=== PATIENT | male | born 1970 ===

== ENCOUNTER 2017-03-28 11:37 | Day surgery (SDC) | payer OTHER, MEDICARE, MEDICAID ==
[2017-03-16 08:26] VITALS: BMI 20.7
[~2017-03-28 11:37] MED LIST: Iodixanol 320 MG/ML 200 ML BOTTLE IV ONE; Iodixanol 320 mg/ml 150 ml Bottle IV ONE; Lidocaine 2% Inj (20ml) ONE; Nitroglycerin 50mg in D5W 50 MG/250 ML BOTTLE IV ONE
[2017-03-28] MEDS ORDERED: Midazolam 2 MG/2 ML VIAL ONE ×2 (12:16→12:49)
[2017-03-28] MEDS ORDERED: Iodixanol 320 MG/ML 100 ML BOTTLE IV ONE (13:09)
[2017-03-28] MEDS ORDERED: Oxycodone/Acetaminophen 5/325 mg Tab PO PRN (13:35)
--- NOTE | 2017-03-28 15:34 | CP.PCM.CON ---
History of Present Illness - History of Present Illness History of Present Illness: 47 year old male with a past medical history of right mastoiditis/osteomylitis, IDDM, ESRD on Dialysis (M, W,F) presenting [place] [facility] [place] from [facility] for renal angiogram procedure. Patient tolerated procedure well. After procedure, patient was transferred to CCU where he received 225 minutes of HD. After HD patient to be transferred back to [facility]. Past Patient History - Infectious Disease Hx of Infectious Diseases: None - Tetanus Immunizations Tetanus Immunization: Unknown - Past Medical History & Family History Past Medical History?: Yes - Past Social History Smoking Status: Former Smoker - CARDIAC Hx Hypercholesterolemia: Yes Hx Hypertension: Yes - PULMONARY Hx Pneumonia: Yes - NEUROLOGICAL Hx Neurological Disorder: No - HEENT Hx HEENT Problems: Yes Hx Cataracts: Yes (with surgery) - RENAL Hx Chronic Kidney Disease: Yes - ENDOCRINE/METABOLIC Hx Endocrine Disorders: Yes - HEMATOLOGICAL/ONCOLOGICAL Hx Blood Disorders: Yes - INTEGUMENTARY Hx Dermatological Problems: No - MUSCULOSKELETAL/RHEUMATOLOGICAL Hx Musculoskeletal Disorders: Yes Hx Falls: Yes - GASTROINTESTINAL Hx Gastrointestinal Disorders: Yes Hx Nausea: Yes Hx Vomiting: Yes Other/Comment: DIABETIC GASTROPARESIS - GENITOURINARY/GYNECOLOGICAL Hx Genitourinary Disorders: Yes Other/Comment: Failed renal transplant - PSYCHIATRIC Hx Psychophysiologic Disorder: No Hx Substance Use: No - SURGICAL HISTORY Hx Appendectomy: Yes - ANESTHESIA Hx Anesthesia: Yes Hx Anesthesia Reactions: No Meds Allergies/Adverse Reactions: Allergies Allergy/AdvReac Type Severity Reaction Status Date / Time No Known Allergies Allergy Verified 03/27/17 10:39 - Medications Medications: Current Medications Acetaminophen (Tylenol 325mg Tab) 650 mg PO Q4H PRN PRN Reason: Pain, Mild (1-3) Ondansetron HCl (Zofran Inj) 4 mg IVP ONCE PRN PRN Reason: Nausea/Vomiting Oxycodone/Acetaminophen (Percocet 5/325 Mg Tab) 1 tab PO Q4H PRN PRN Reason: Pain, moderate (4-7) Stop: 03/31/17 13:36 Results - Vital Signs Recent Vital Signs: Last Vital Signs Temp Pulse 60 03/28/17 15:00 Resp 43 H 03/28/17 15:00 BP 155/61 H 03/28/17 15:00 Pulse Ox 92 L 03/28/17 15:00
[2017-03-28] MEDS ORDERED: Nicardipine 20 MG/200 ML 20 MG/200 ML BAG IV PRN (15:39)
[2017-03-28 16:00] LABS: ALB/GLOB RATIO 1.3 (1.1-1.8); BILIRUBIN,TOTAL 0.6 mg/dL (0.2-1.3); CALCIUM 8.2 mg/dL (8.4-10.5); MAGNESIUM 2.2 mg/dL (1.7-2.2); PHOSPHOROUS 8.1 mg/dL (2.5-4.5); POTASSIUM 5.4 mmol/L (3.6-5.0); TOTAL PROTEIN 6.8 g/dL (5.8-8.3)
[2017-03-28 16:27] VITALS: TEMP 97.8
--- NOTE | 2017-03-28 18:02 | VASCULAR ---
PROCEDURE: 1. Selective bilateral renal arteriograms. 2. Selective pelvic transplant renal arteriograms x 2 3. Left renal artery transplant angioplasty and stent placement x 2 HISTORY: Uncontrolled hypertension on multiple IV antihypertensive. End-stage renal disease. Failed renal transplant 3 years ago. Evaluate for renal artery stenosis and renovascular hypertension PHYSICIAN(S): Joaquin Aleman M.D. TECHNIQUE: The relative risks and indications of the procedure were explained to the patient and consent obtained. The patient was placed supine on the arteriogram table and the right groin prepped and draped in the usual sterile fashion. Conscious sedation and monitoring were provided throughout the procedure by a nurse. Via a right common femoral artery approach, a 5 [place] sheath was placed in the right groin. Through the sheath and over a guidewire, a 5 [place] flush catheter was placed in the abdominal aorta at the level of the renal arteries and a PA DSA abdominal aortogram performed. The catheter was exchanged for a 5 [place] C1 catheter placed in the right main renal artery. A selective right main renal arteriogram was performed. The C1 catheter was then placed selectively in the left main renal artery and a DSA left main renal arteriogram performed. The catheter was removed and a 0.035 glidewire placed in the left SFA. A 6 [place] 45 cm bulk in sheath was placed in the proximal left external iliac artery. Injection left external iliac artery revealed 2 renal transplant arteries. Exchange is made for a a 5 [place] angle catheter that was placed the origin of the E main left transplant renal artery. Stasis was noted. 100 mm gradient was noted. A selective left transplant renal arteriogram was performed. Exchange is made for 0.014 guidewire. The origin of the main left transplant renal artery was dilated with a 5 mm balloon. A 5 mm by 15 mm balloon expandable stent was deployed at the origin of the left main transplant renal artery. A good angiographic result was obtained with very slow antegrade flow. The 5 [place] selective catheter was placed in the accessory left transplant renal artery. Once again a 20-30 mm gradient was seen. Over a 0.014 guidewire [place] 4 mm x 12 mm balloon expandable stent was placed in the accessory left transplant renal artery. Completion angiograms were obtained. The sheath was removed hemostasis obtained. The patient tolerated the procedure well. FINDINGS: The k[place] main renal arteries are atrophic but patent. Mild atherosclerotic disease is noted on the right. The nephrograms are atrophic and poorly perfused. No radiographically significant stenosis of the ken[place] main renal arteries is seen. There are 2 transplant renal arteries coming off the left external iliac artery anteriorly. The main transplant renal artery demonstrates 100 mm gradient. Subsequently a 5 mm balloon expandable stent was placed the origin of the main left transplant renal artery. The accessory left transplant renal artery also demonstrates 20-30 mm gradient. A 4 mm balloon expandable stent was placed the origin of the left accessory transplant renal artery. There is poor antegrade flow noted in the transplant renal artery is due to the patient's end-stage renal disease IMPRESSION: 1.Hemodynamically significant stenoses at the origins of both left transplant renal arteries. 2. Successful angioplasty and balloon expandable stent placement in the origin of the left transplant renal arteries. 3. Atrophic but patent main k[place] renal arteries. 4. The visualized abdominal aorta and iliac arteries are patent.
--- NOTE | 2017-03-28 18:03 | VASCULAR ---
PROCEDURE: Ultrasound and fluoroscopically placed left upper extremity PICC line. HISTORY: End-stage renal disease. Uncontrolled hypertension on IV medications. Needs PICC line. PHYSICIAN(S): Joaquin Aleman MD. TECHNIQUE: The relative risks and indications of the procedure were explained to the patient and consent obtained. The patient was placed supine on the arteriogram table and the left arm prepped and draped in the usual sterile fashion. A tourniquet was applied to the left axilla. 1% Xylocaine was used to anesthetize the skin and soft tissues at the puncture site above the elbow. The left basilic vein was punctured under direct ultrasound guidance with a micropuncture set. A 0.018 guidewire was advanced centrally and used to measure the length to the SVC/RA junction. A 5 [place] single-lumen PICC line 50 cm long was advanced to the SVC/RA junction. The catheter was flushed and secured. The patient tolerated the procedure well. IMPRESSION: 1. Ultrasound and fluoroscopically placed left upper extremity PICC line. A 5 [place] single-lumen PICC line 50 cm long was advanced to the SVC/RA junction.
[2017-03-28 19:28] VITALS: O2SAT 96
[2017-03-28 20:23] VITALS: BP 188/81; PULSE 76; RESP 17
--- NOTE | 2017-03-29 02:29 | CON ---
HISTORY OF PRESENT ILLNESS: A 47-year-old male with past medical history of diabetes; hypertension; ESRD, on hemodialysis (Tuesday, Tuesday, Tuesday at [facility]), status post failed renal transplant (transplanted in 2003,failed in 2013), initially presented to [facility] with palpitations while receiving hemodialysis. The patient was found to have severely uncontrolled hypertension. Workup revealed renal artery stenosis involving transplanted kidney. The patient was therefore transferred to [facility] for angioplasty, angiogram. The patient underwent successful angioplasty and stent placement in main transplant renal artery as well as left transplanted renal artery, accessory artery. The patient subsequently moved to ICU for observation and hemodialysis. The patient reports that his blood pressure had been around 150s up until about past 2 weeks or so when blood pressure started to rise significantly. The patient has also been having right ear infection and was initially treated with p.o. antibiotics; however, on further assessment, was found to have right-sided mastoiditis/osteomyelitis and was placed on IV antibiotics. The patient reports that he generally gains anywhere from 3.5 to 5 kilos between dialysis sessions. The patient is otherwise anuric. Gets short of breath on walking a few blocks. Gets intermittent leg swelling as well. PAST MEDICAL HISTORY: As above. FAMILY HISTORY: Mother with hypertension. Denies any family history of kidney disease. SOCIAL HISTORY: Previous smoker. REVIEW OF SYSTEMS: HEENT: No change in vision lately. Right-sided mastoiditis as mentioned above, receiving ibuprofen p.r.n. RESPIRATORY: Dyspnea at times. CARDIOVASCULAR: As mentioned in HPI. GASTROINTESTINAL: Denies any nausea, vomiting or diarrhea. GENITOURINARY: Anuric. NEUROLOGIC: Numbness in feet. PSYCHIATRIC: Denies any depression. SKIN: Has had previous foot ulcers, none currently. PHYSICAL EXAMINATION VITAL SIGNS: This morning, blood pressure 167/73, heart rate 63, respirations 16, and O2 sat 98% on room air. GENERAL: No distress. Communicating coherently in full sentences. HEENT: Moist mucus membranes. Nonicteric. RESPIRATORY: Lungs clear to auscultation bilaterally. No rales. No rhonchi. No wheezes. HEART: S1 and S2 normal. No murmurs, no gallops, no rubs. GASTROINTESTINAL: Abdomen soft, nontender, nondistended. GENITOURINARY: No bladder distention. NEUROLOGIC: Decreased sensation in bilateral feet. SKIN: Warm to touch. No cyanosis. PSYCHIATRIC: Normal mood, normal affect. Distal pulses 2+ bilateral dorsalis pedis pulses. Mild bilateral femoral bruits. No carotid bruits. No abdominal bruits. LABORATORY DATA: This morning, CBC; WBC 7.1, hemoglobin 9.1, hematocrit 28.2, platelets 189. Chemistry panel; sodium 139, potassium 4.6, chloride 99, bicarbonate 20, BUN 60, creatinine 7.8, glucose 70, calcium 8.5. Repeat labs this afternoon showing potassium 5.4, phosphorous 8.1. ASSESSMENT AND PLAN: 1. End-stage renal disease, on hemodialysis. The patient with mild hyperkalemia, otherwise [id number] metabolic acidosis on chem panel, dialyzing his routine with UF goal of approximately 5 L. 2. Uncontrolled hypertension, being found to have transplanted renal artery stenosis, status post successful angioplasty, unclear if stenosis developed rather quickly given the patient's history that his blood pressure had previously been better controlled. Recommend to keep the patient on high-dose, high-potency statin as well as aspirin. 3. Anemia. The patient with hemoglobin that has been downward trending during his hospital stay, likely needs EPO, but may need to hold until blood pressure is better controlled. 4. Chronic kidney disease-mineral bone disease. Phosphorous elevated during current hospitalization. The patient was previously on Velphoro, continue same. The patient counseled on need for chronic phosphorous control. 5. Osteomyelitis. The patient is currently on Zosyn dose 2.25 g q. 6 hours and vancomycin being dosed at 1 g q. Tuesday, Tuesday, Tuesday. Recommend to check random vancomycin level. Vance Weeks MD
== END 2017-03-28 20:00 | disposition short-term general hospital (02) ==
LOC: SDSVAS 11:37 → CCU 13:46 → SDSVAS 20:00
PROVIDERS: ATTEND Radiology Vascular & Interventional Radiology
DX: I12.0 Hypertensive chronic kidney disease with stage 5 chronic kidney disease or end stage renal disease (principal); N18.6 End stage renal disease; E11.22 Type 2 diabetes mellitus with diabetic chronic kidney disease; Z99.2 Dependence on renal dialysis; I70.1 Atherosclerosis of renal artery; E87.2 Acidosis; E11.69 Type 2 diabetes mellitus with other specified complication; M86.9 Osteomyelitis, unspecified; D64.9 Anemia, unspecified; Z87.891 Personal history of nicotine dependence